=== PATIENT | female | born 1995 | race Caucasian/White ===

== ENCOUNTER → 2023-02-12 | Emergency (ER) | payer OTHER ==
[~2023-02-12] MED LIST: NA CHLORIDE 0.9% 1,000 ML ONE
[2023-02-12 12:52] LABS: Absolute Lymphocytes (CBC) 2.7 K/uL (0.7-4.9); Lymphocytes % 25.4 % (15.3-44.8); MCV 89.2 fL (80-100); MPV 7.7 fL (7.6-11.3); Platelets 323 thou/uL (152-406); RBC Red Blood Cell Count 5.04 M/uL (3.86-4.86)
[2023-02-12 12:58] LABS: Specific Gravity 1.012 (1.005-1.030)
[2023-02-12 13:11] LABS: BUN Blood Urea Nitrogen 13 mg/dL (7-18); Bicarbonate 25 mEq/L (21-32); Glomerular Filtration Rate 89 ml/min (=/>90); Glucose Level 89 mg/dL (74-106); Lipase 16 U/L (13-75); NT PRO-BNP 7 pg/mL (<125); Potassium 3.9 mEq/L (3.5-5.1); Sodium Level 136 mEq/L (136-145)
[2023-02-12 13:15] LABS: Troponin High Sensitivity < 3.0 pg/mL (<58.9)
--- NOTE | 2023-02-12 13:40 | RAD REPORT ---
EXAM DESCRIPTION: CT - Chest For Pe Angio - 02/12/2023 1:17 pm CLINICAL HISTORY: DYSPNEA COMPARISON: No comparisons TECHNIQUE: Dynamically enhanced axial 3 mm thick images of the chest were obtained during administra tion of <100> mL Isovue 370 IV contrast. Coronal and oblique reconstruction images were generated and reviewed. Exam utilizes a protocol for optimal evaluation of pulmonary arterial tree. Maximum intensity projections 3D imaging was utilized All CT scans are performed using dose optimization technique as appropriate and may include automated exposure control or mA/KV adjustment according to patient size. FINDINGS: Chest Wall: No suspicious thyroid nodules or pathologic lymphadenopathy. Lungs: No acute abnormality. Pleura: No significant effusions or pneumothorax. Mediastinum/bhupinder: No pathologic lymphadenopathy. Pulmonary arteries/Aorta: No filling defect identified. No aortic aneurysm. Heart: No significant pericardial effusion. Normal heart size. Upper abdomen: No acute abnormality. Bones: No acute abnormality. IMPRESSION: Negative for pulmonary embolism. No acute findings identified.
--- NOTE | 2023-02-12 14:12 | ER ---
Nurse's Notes [facility] Name: Tiara Martin Age: 27 yrs Sex: Female : 1995 Arrival Date: 02/12/2023 Time: 11:36 Bed 14 Private MD: Diagnosis: Palpitations;Paroxysmal tachycardia, unspecified Presentation: 02/12 11:52 Chief complaint: Patient states: SOB and dizziness began yesterday. Upper abdominal gas ll1 feeling. No fever. Went to Urgent Care 1[facility], then sent for further eval. Coronavirus screen: Client denies travel out of the [place] in the last 14 days. difficulty breathing, Client presents with at least one sign or symptom that may indicate coronavirus-19. Standard/surgical mask placed on the client. Ebola Screen: Patient denies travel to an Ebola-affected area in the 21 days before illness onset. Initial Sepsis Screen: Does the patient meet any 2 criteria? HR > 90 bpm. No. Patient's initial sepsis screen is negative. Does the patient have a suspected source of infection? No. Patient's initial sepsis screen is negative. Risk Assessment: Do you want to hurt yourself or someone else? Patient reports no desire to harm self or others. Onset of symptoms was February 11, 2023. 11:52 Method Of Arrival: Ambulatory ll1 11:52 Acuity: ELIDA 3 ll1 Triage Assessment: 11:54 General: Appears uncomfortable, Behavior is calm, cooperative, appropriate for age. ll1 Pain: Complains of pain in abdomen Pain currently is 3 out of 10 on a pain scale. Quality of pain is described as pressure. Neuro: Reports dizziness. Respiratory: Reports shortness of breath labored breathing. GI: Reports cramping, gaseousness. 14:34 Respiratory: the patient has mild shortness of breath. kd3 14:34 Respiratory: Onset: The symptoms/episode began/occurred gradually. kd3 Historical: - Allergies: 11:52 No Known Allergies; ll1 - PMHx: 11:52 None; ll1 - PSHx: 11:52 None; ll1 - Immunization history:: Adult Immunizations up to date. - Social history:: Smoking status: Patient denies any tobacco usage or history of. Screenin:33 [facility] ED Fall Risk Assessment (Adult) History of falling in the last 3 months, kd3 including since admission No falls in past 3 months (0 pts) Confusion or Disorientation No (0 pts) Intoxicated or Sedated No (0 pts) Impaired Gait No (0 pts) Mobility Assist Device Used No (0 pt) Altered Elimination No (0 pt) Score/Fall Risk Level 0 - 2 = Low Risk Oriented to surroundings. Abuse screen: Denies threats or abuse. Denies injuries from another. Nutritional screening: No deficits noted. Tuberculosis screening: No symptoms or risk factors identified. Assessment: 13:40 Reassessment: Patient and/or family updated on plan of care and expected duration. Pain kd3 level reassessed. 14:33 Cardiovascular: Rhythm is sinus rhythm. Respiratory: Airway is patent Respiratory kd3 effort is even, unlabored, Breath sounds are clear bilaterally. Vital Signs: 11:52 BP 118 / 84; Pulse 130; Resp 18; Temp 98.2; Pulse Ox 100% ; Weight 79.38 kg; Height 5 ll1 ft. 5 in. ; Pain 3/10; 13:47 Pulse 101; ec2 11:52 Body Mass Index 29.12 (79.38 kg, 165.1 cm) ll1 11:52 Pain Scale: Adult ll1 11:52 HR 85-150 during triage ll1 ED Course: 11:38 Patient arrived in ED. rg4 11:42 Margarito Earl MD is Attending Physician. ec2 11:47 Arm band placed on. ll1 11:54 Triage completed. ll1 12:55 Lady Lal, JYOTI is Primary Nurse. kd3 13:06 Inserted saline lock: 22 gauge in right antecubital area, using aseptic technique. ds4 Blood collected. 13:19 CT Chest For PE Angio In Process Unspecified. EDMS 14:30 XRAY Chest (1 view) In Process Unspecified. EDMS 14:34 Patient has correct armband on for positive identification. Provided Education on: . kd3 14:34 No provider procedures requiring assistance completed. IV discontinued, intact, kd3 bleeding controlled, No redness/swelling at site. Pressure dressing applied. Administered Medications: 13:40 Drug: NS 0.9% IV 1000 ml IV at 1 bolus Per protocol; 1000 mL bolus Route: IV; Rate: 1 kd3 bolus; Site: right antecubital; 14:34 Follow up: IV Status: Completed infusion; IV Intake: 1000ml kd3 Medication: 14:34 VIS not applicable for this client. kd3 Intake: 14:34 IV: 1000ml; Total: 1000ml. kd3 Outcome: 14:11 Discharge ordered by . ec2 14:34 Discharged to home ambulatory, kd3 14:34 Condition: stable 14:34 Discharge instructions given to patient, Instructed on discharge instructions, follow up and referral plans. Demonstrated understanding of instructions, follow-up care, 14:35 Patient left the ED. kd3 Signatures: Dispatcher [employer] Mekhi Evans ds4 Bella Manley rg4 Mariano Montes De Oca RN RN ll1 Lady Lal RN RN kd3 Margarito Earl MD MD ec2 Corrections: (The following items were deleted from the chart) 11:55 11:52 BP 118 / 84; Pulse 130bpm; Resp 18bpm; Pulse Ox 100%; Temp 98.2F; 79.38 kg; ll1 Height 5 ft. 5 in.; BMI: 29.1; Pain 3/10, Adult; ll1
--- NOTE | 2023-02-12 14:12 | EDPHYS ---
Physician Documentation [facility] Name: Tiara Martin Age: 27 yrs Sex: Female : 1995 Arrival Date: 02/12/2023 Time: 11:36 Bed 14 Private MD: ED Physician Margarito Earl HPI: 02/12 12:25 This 27 yrs old Female presents to ER via Ambulatory with complaints of ec2 Shortness Of Breath, Dizziness. 12:25 Patient arrives today due to concern for shortness of breath as well as ec2 lightheadedness. Patient reports that she has been feeling short of breath for the past 2 days. Patient reports no cough and cold symptoms, no chest pain. States that she has upper abdominal discomfort. Patient reports known vomiting or diarrhea episodes. Denies any urinary complaints. Reports no recent history of immobilization. States that she does take phentermine for appetite suppression and is also on Ozempic.. Historical: - Allergies: 11:52 No Known Allergies; ll1 - PMHx: 11:52 None; ll1 - PSHx: 11:52 None; ll1 - Immunization history:: Adult Immunizations up to date. - Social history:: Smoking status: Patient denies any tobacco usage or history of. ROS: 12:26 Constitutional: as per hpi ec2 Exam: 12:26 Constitutional: GEN: NAD Head: atraumatic Eyes: EOMI Ears: External ears are ec2 normal. CV: Tachycardia, no lower extremity edema LUNGS: no respiratory distress, no wheezes, no rales, no rhonchi ABD: non-distended, soft, nontender, no guarding, not rigid SKIN: no evidence of rashes MSK: no evidence of trauma NEURO: moves all extremities equally Vital Signs: 11:52 BP 118 / 84; Pulse 130; Resp 18; Temp 98.2; Pulse Ox 100% ; Weight 79.38 kg; Height 5 ll1 ft. 5 in. ; Pain 3/10; 13:47 Pulse 101; ec2 11:52 Body Mass Index 29.12 (79.38 kg, 165.1 cm) ll1 11:52 Pain Scale: Adult ll1 11:52 HR 85-150 during triage ll1 MDM: 12:13 Patient medically screened. ec2 12:26 Data reviewed: vital signs. ED course: Patient arrives today for evaluation of ec2 shortness of breath. Examination remarkable for tachycardic individual with clear lung sounds otherwise well-appearing. Will obtain lab work, EKG, cardiac workup as well as CT scan of the chest. Currently considering processes such as PE, ACS, electrolyte disturbances, A-fib. . 13:10 ED course: EKG independently reviewed and interpreted by me, shows normal sinus rhythm, ec2 rate 98, no acute ST segment elevations, intervals nonconcerning.. 13:46 ED course: Metabolic profile is reassuring. CBC is reassuring. Troponin within normal ec2 ranges, BMP within normal ranges, negative COVID testing, negative flu testing, negative lipase testing, testing is negative. CT scan of the chest shows no PE or acute process identified. . 14:10 ED course: On reassessment patient reports improvement in her symptoms. Will discharge ec2 home, no evidence of emergent process identified, no evidence of ACS or PE or dissection. Return precautions given. Possible medication side effect related as she is on phentermine, patient denied any substance abuse that could be contributing to this, denies any significant caffeine administration either.. 02/12 12:25 Order name: Basic Metabolic Panel; Complete Time: 13:46 ec2 02/12 12:25 Order name: CBC with Diff; Complete Time: 13:46 ec2 02/12 12:25 Order name: NT PRO-BNP; Complete Time: 13:46 ec2 02/12 12:25 Order name: Troponin HS; Complete Time: 13:46 ec2 02/12 12:25 Order name: COVID-19 SARS RT PCR; Complete Time: 13:46 ec2 02/12 12:25 Order name: Influenza Screen (a \T\ B); Complete Time: 13:46 ec2 02/12 12:25 Order name: Lipase; Complete Time: 13:46 ec2 02/12 12:26 Order name: Test, Urine; Complete Time: 13:46 ec2 02/12 12:25 Order name: XRAY Chest (1 view) ec2 02/12 12:25 Order name: CT Chest For PE Angio; Complete Time: 13:46 ec2 02/12 12:25 Order name: EKG; Complete Time: 12:26 ec2 02/12 12:25 Order name: Cardiac monitoring; Complete Time: 13:07 ec2 02/12 12:25 Order name: EKG - Nurse/Tech; Complete Time: 13:07 ec2 02/12 12:25 Order name: IV Saline Lock; Complete Time: 13:06 ec2 02/12 12:25 Order name: Labs collected and sent; Complete Time: 13:06 ec2 02/12 12:25 Order name: O2 Per Protocol; Complete Time: 13:06 ec2 02/12 12:25 Order name: O2 Sat Monitoring; Complete Time: 13:06 ec2 Administered Medications: 13:40 Drug: NS 0.9% IV 1000 ml IV at 1 bolus Per protocol; 1000 mL bolus Route: IV; Rate: 1 kd3 bolus; Site: right antecubital; 14:34 Follow up: IV Status: Completed infusion; IV Intake: 1000ml kd3 Disposition Summary: 02/12/23 14:11 Discharge Ordered Notes: Location: Home ec2 Condition: Stable ec2 Diagnosis - Palpitations ec2 - Paroxysmal tachycardia, unspecified ec2 Followup: ec2 - With: Private Physician - When: - Reason: Recheck today's complaints Discharge Instructions: - Discharge Summary Sheet ec2 - Sinus Tachycardia ec2 Forms: - Medication Reconciliation Form ec2 - Thank You Letter ec2 - Antibiotic Education ec2 - Prescription Opioid Use ec2 - Patient Portal Instructions ec2 - Leadership Thank You Letter ec2 Signatures: Dispatcher [employer] Mariano Lamb, RN RN ll1 Lady Lal RN RN kd3 Margarito Earl MD MD ec2
--- NOTE | 2023-02-12 14:43 | RAD REPORT ---
EXAM DESCRIPTION: RAD - Chest Single View - 02/12/2023 2:29 pm CLINICAL HISTORY: DYSPNEA COMPARISON: No comparisons FINDINGS: Lines: None. Lungs: No evidence of edema or pneumonia. Pleural: No significant pleural effusions or pneumothorax. Cardiac: The heart size is within normal limits. Mediastinum: Within normal limits. Bones: No acute fractures. Other: None IMPRESSION: No acute cardiopulmonary disease.
[2023-02-12 15:53] VITALS: BP 118/84; TEMP 98.2; O2SAT 100
--- NOTE | 2023-02-14 13:27 | EKG ---
Test Date: 2023-02-12 Test Time: 13:04:44 [place] Turner: JAGRUTI MEASUREMENT RESULTS: Intervals: Rate: 98 RI: 146 QRSD: 86 QT: 358 QTc: 457 [place]: P: 26 RI: 146 QRS: 64 T: 21 INTERPRETIVE STATEMENTS: Normal sinus rhythm Normal ECG No previous ECG available for comparison Electronically Signed On 02-14-23 13:22:32 ACID PURIFIER by Emanuel Langford
== END ==
LOC: ER 11:36
DX: I47.9 Paroxysmal tachycardia, unspecified (principal); Z11.52 Encounter for screening for COVID-19
CPT/HCPCS: 93005; 85025; 80048; 36415; 81025; 84484; 83690; 83880; 87635; 87804 ×2; 71275; 71045; 96360; 99284; Q9967; J7030